=== PATIENT | male | born 1980 | race Caucasian/White ===

== ENCOUNTER 2019-03-26 00:46 | Emergency (ER) | payer OTHER ==
[~2019-03-26] VITALS: Ht 180.3 cm; Wt 81.8 kg
[2019-03-26] MEDS ORDERED: CHAN1PAK13 PO (01:06)
[2019-03-26] MEDS ORDERED: DEXTROMETHORPHAN 60MG/10ML SUSP 90ML BTL(DELSYM) PO ONE (02:15)
[2019-03-26] MEDS ORDERED: KETOROLAC 60 MG/2 ML VIAL (J1885) IM ONE (02:15)
[2019-03-26 03:00] VITALS: BP 122/79
[2019-03-26] MEDS ORDERED: ROBI1LIQ9 PO (03:04)
--- NOTE | 2019-03-26 09:41 | ECGEPIP ---
[facility] - ED Test Date: 2019-03-26 Pat Name: JA HAIR Department: Room: - Gender: Male Policy Analyst: : 1980 Requested By: ANA MAR Order Number: [id number] Reading MD: Vlad Mai Measurements Intervals Graham Rate: 77 P: -1 NH: 158 QRS: 52 QRSD: 105 T: -8 QT: 374 QTc: 426 Interpretive Statements SINUS RHYTHM NONSPECIFIC ST T WAVE CHANGES NO OLD ECG FOR COMPARISON Electronically Signed on 03-26-2019 9:40:38 EDT by Vlad Mai
--- NOTE | 2019-03-26 10:06 | REP ---
CHEST, TWO VIEWS: Two views of the chest are performed. There are no comparison studies. There is mild peribronchial thickening centrally bilaterally suggesting reactive airway disease or bronchitis. There may be some subtle mild confluent infiltrate in the left upper lobe. Heart is normal in size and the mediastinal silhouette otherwise appears unremarkable. The visualized osseous structures appear intact. IMPRESSION: Diffuse peribronchial thickening suggesting reactive airway disease or bronchitis. Possible mild confluent infiltrate in the left upper lobe. Recommend followup. Electronically Signed by Marcos Gunn MD 03/26/2019 04:50 P
== END 2019-03-26 03:08 | disposition home or self-care (01) ==
LOC: M ED 00:46
DX: J20.9 Acute bronchitis, unspecified (principal); F17.200 Nicotine dependence, unspecified, uncomplicated; Z79.899 Other long term (current) drug therapy
CPT/HCPCS: 71046; 93005; 96372; 99284; J1885